=== PATIENT | female | born 1970 | race Caucasian/White ===

== ENCOUNTER 2023-01-31 01:52 | Emergency (ER) | payer OTHER, SELFPAY ==
[2023-01-31 02:51] LABS: Bilirubin 6 (Negative); Blood, Urine 150 (Negative); Clarity Cloudy (Clear); Glucose, Urine (Dipstick) Normal (Negative); Ketone, Urine Negative (Negative); Leukocyte 500 (Negative); Nitrite Positive (Negative); Protein, Urine (Dipstick) 100 mg/dl (Neg-Trace)
[2023-01-31 03:08] LABS: CAUTI Indications for Culture Dysuria,urgency,freq; WBC/HPF 21-50 HPF (0-3)
[2023-01-31 03:09] LABS: Bacteria/HPF 3+ HPF (None Seen)
== END 2023-01-31 03:15 | disposition home or self-care (01) ==
LOC: CSHERS 01:52
DX: N30.00 Acute cystitis without hematuria (principal)
CPT/HCPCS: 81001; 87077; 87086; 87186; 99283